=== PATIENT | female | born 1965 | race Caucasian/White ===

== ENCOUNTER → 2018-08-21 | Outpatient (CLI) | payer OTHER ==
--- NOTE | 2018-08-21 12:45 | XR ---
Right wrist and right hand HISTORY: Pain, trauma 4 views of the right wrist, 3 views of the right hand submitted. Bone mineralization, joint spaces and alignment are maintained. IMPRESSION: No fracture or dislocation.
== END | disposition home or self-care (01) ==
LOC: RADXRMAIN 12:05
PROVIDERS: ATTEND Emergency Medicine
DX: M25.531 Pain in right wrist (principal); M79.641 Pain in right hand; M65.841 Other synovitis and tenosynovitis, right hand; R20.9 Unspecified disturbances of skin sensation

== ENCOUNTER 2023-02-09 17:24 | Emergency (ER) | payer BC, OTHER ==
[2023-02-09 17:35] VITALS: RESP 18; TEMP 98.5
[2023-02-09] MEDS ORDERED: SODIUM CHLORIDE 0.9% 1,000 ML IV STA (17:52)
--- NOTE | 2023-02-09 17:59 | ED ---
Neuro HPI - General Chief Complaint: Neuro Symptoms/Deficit Stated Complaint: possible stroke Time Seen by Provider: 02/09/23 17:37 Source: patient, RN notes reviewed, old records reviewed Mode of arrival: wheelchair Limitations: no limitations - History of Present Illness Is the patient presenting with stroke symptoms?: Yes -: hour(s) (15) Initial Comments: This is a 57-year-old female of severe left-sided facial weakness as well as left arm weakness. The symptoms began last night progressing here in the emergency department. She has no travel history no sick contacts but does have persistent symptoms here in the emergency department. Symptoms are severe with occasional headaches and vertigo at home. Patient is no medical history takes no medications Location: left face, left arm, altered Place: home Severity: severe Improves With: none Worsens With: none Context: sudden onset Associated Symptoms: confusion - Related Data Home Medications: Home Medications Medication Instructions Recorded Confirmed Magnesium Oxide [Magox 400] 400 mg PO HS 02/09/23 02/09/23 Potassium Gluconate 99 mg PO HS 02/09/23 02/09/23 Allergies/Adverse Reactions: Allergies Allergy/AdvReac Type Severity Reaction Status Date / Time No Known Allergies Allergy Verified 02/09/23 19:12 Review of Systems ROS Statement: Those systems with pertinent positive or pertinent negative responses have been documented in the HPI. ROS Other: All systems not noted in ROS Statement are negative. General Exam - General Exam Comments Initial Comments: NIH 3 Partial facial paralysis of left-sided numbness and tingling Limitations: no limitations General appearance: alert, in no apparent distress, anxious Head exam: Present: atraumatic, normocephalic, normal inspection Eye exam: Present: normal appearance, PERRL, EOMI. Absent: scleral icterus, conjunctival injection, periorbital swelling ENT exam: Present: normal exam, mucous membranes moist Neck exam: Present: normal inspection. Absent: tenderness, meningismus, lymphadenopathy Respiratory exam: Present: normal lung sounds bilaterally. Absent: respiratory distress, wheezes, rales, rhonchi, stridor Cardiovascular Exam: Present: regular rate, normal rhythm, normal heart sounds. Absent: systolic murmur, diastolic murmur, rubs, gallop, clicks GI/Abdominal exam: Present: soft, normal bowel sounds. Absent: distended, tenderness, guarding, rebound, rigid Extremities exam: Present: normal inspection, full ROM, normal capillary refill. Absent: tenderness, pedal edema, joint swelling, calf tenderness Back exam: Present: normal inspection Neurological exam: Present: alert, oriented X3, CN II-XII intact Psychiatric exam: Present: normal affect, normal mood Skin exam: Present: warm, dry, intact, normal color. Absent: rash Stroke MDM - Lab Data Result diagrams: 02/09/23 17:56 02/09/23 17:56 Lab Results 02/09/23 02/09/23 02/09/23 Range/Units 17:56 17:56 17:56 WBC 9.5 (3.8-10.6) k/uL RBC 4.54 (3.80-5.40) m/uL Hgb 13.8 (11.4-16.0) gm/dL Hct 40.1 (34.0-46.0) % MCV 88.3 (80.0-100.0) fL MCH 30.4 (25.0-35.0) pg MCHC 34.5 (31.0-37.0) g/dL RDW 12.1 (11.5-15.5) % Plt Count 272 (150-450) k/uL MPV 7.6 Neutrophils % 69 % Lymphocytes % 23 % Monocytes % 5 % Eosinophils % 1 % Basophils % 1 % Neutrophils # 6.5 (1.3-7.7) k/uL Lymphocytes # 2.2 (1.0-4.8) k/uL Monocytes # 0.5 (0-1.0) k/uL Eosinophils # 0.1 (0-0.7) k/uL Basophils # 0.1 (0-0.2) k/uL PT 10.4 (10.0-12.5) sec INR 0.9 (<1.2) APTT 25.6 (22.0-30.0) sec Sodium 138 (137-145) mmol/L Potassium 3.8 (3.5-5.1) mmol/L Chloride 99 (98-107) mmol/L Carbon Dioxide 27 (22-30) mmol/L Anion Gap 12 mmol/L BUN 7 (7-17) mg/dL Creatinine 0.43 L (0.52-1.04) mg/dL Est GFR (CKD-EPI)AfAm >90 (>60 ml/min/1.73 sqM) Est GFR (CKD-EPI)NonAf >90 (>60 ml/min/1.73 sqM) Glucose 104 H (74-99) mg/dL Calcium 9.8 (8.4-10.2) mg/dL Total Bilirubin 0.6 (0.2-1.3) mg/dL AST 41 H (14-36) U/L ALT 36 H (4-34) U/L Alkaline Phosphatase 153 H (38-126) U/L Creatine Kinase 44 (30-135) U/L Troponin I (0.000-0.034) ng/mL Total Protein 7.9 (6.3-8.2) g/dL Albumin 4.7 (3.5-5.0) g/dL 02/09/23 Range/Units 17:56 WBC (3.8-10.6) k/uL RBC (3.80-5.40) m/uL Hgb (11.4-16.0) gm/dL Hct (34.0-46.0) % MCV (80.0-100.0) fL MCH (25.0-35.0) pg MCHC (31.0-37.0) g/dL RDW (11.5-15.5) % Plt Count (150-450) k/uL MPV Neutrophils % % Lymphocytes % % Monocytes % % Eosinophils % % Basophils % % Neutrophils # (1.3-7.7) k/uL Lymphocytes # (1.0-4.8) k/uL Monocytes # (0-1.0) k/uL Eosinophils # (0-0.7) k/uL Basophils # (0-0.2) k/uL PT (10.0-12.5) sec INR (<1.2) APTT (22.0-30.0) sec Sodium (137-145) mmol/L Potassium (3.5-5.1) mmol/L Chloride (98-107) mmol/L Carbon Dioxide (22-30) mmol/L Anion Gap mmol/L BUN (7-17) mg/dL Creatinine (0.52-1.04) mg/dL Est GFR (CKD-EPI)AfAm (>60 ml/min/1.73 sqM) Est GFR (CKD-EPI)NonAf (>60 ml/min/1.73 sqM) Glucose (74-99) mg/dL Calcium (8.4-10.2) mg/dL Total Bilirubin (0.2-1.3) mg/dL AST (14-36) U/L ALT (4-34) U/L Alkaline Phosphatase (38-126) U/L Creatine Kinase (30-135) U/L Troponin I <0.012 (0.000-0.034) ng/mL Total Protein (6.3-8.2) g/dL Albumin (3.5-5.0) g/dL - NIH Stroke Scale 1a. Level of Consciousness: (0) alert 1b. LOC Questions: (0) answers correctly 1c. LOC Commands: (0) performs tasks correctly 2. Best Gaze: (0) normal 3. Visual: (0) no visual loss 4. Facial Palsy: (2) partial paralysis 5a. Motor Arm Left: (1) drift 5b. Motor Arm Right: (0) no drift 6a. Motor Leg Left: (0) no drift 6b. Motor Leg Right: (0) no drift 7. Limb Ataxia: (0) absent 8. Sensory: (0) normal 9. Best Language: (0) no aphasia 10. Dysarthria: (0) normal 11. Extinction/Inattention: (0) no abnormality - Medical Decision Making 57 female to the emergency room today for evaluation of new onset neurological symptoms left-sided facial weakness numbness and tingling in left arm numbness and tingling, patient be transferred for neurosurgical evaluation management - Radiology Data Radiology results: report reviewed (T brain and as well as CT angios does show positive brain mass versus primary neoplasm, CXR is negative for acute disaese), image reviewed - EKG Data -: EKG Interpreted by Me (EKG sinus 76 GA 160 QRS 81 QTc 411) Past Medical History Past Medical History: No Reported History 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 History of Any Multi-Drug Resistant Organisms: None Reported Past Surgical History: Tubal Ligation Additional Past Surgical History / Comment(s): PLASTIC SX RT INDEX FINGER Past Anesthesia/Blood Transfusion Reactions: No Reported Reaction Past Psychological History: No Psychological Hx Reported Smoking Status: Current every day smoker, Vaper Past Alcohol Use History: Rare Past Drug Use History: None Reported - Past Family History Mother Family Medical History: No Reported History Course Vital Signs 02/09/23 02/09/23 02/09/23 17:29 18:00 18:30 Temperature 98.5 F Pulse Rate 103 H 98 92 Respiratory 18 18 18 Rate Blood Pressure 156/85 139/87 138/85 O2 Sat by Pulse 97 96 96 Oximetry 02/09/23 02/09/23 02/09/23 18:45 19:00 19:15 Temperature Pulse Rate 86 96 96 Respiratory 14 18 Rate Blood Pressure 147/90 145/84 O2 Sat by Pulse 96 96 Oximetry - Reevaluation(s) Reevaluation #1: 02/09/23 18:23 Record is reviewed Code stroke was paged on patient evaluation Reevaluation #2: 02/09/23 19:00 Patient symptoms are unchanged Reevaluation #3: 02/09/23 19:00 Patient informed results questions answered Reevaluation #4: 02/09/23 18:04 Was pt. sent in by a medical professional or institution (, PA, [facility], urgent care, hospital, or snf...) When possible be specific @ -no Did you speak to anyone other than the patient for history (EMS, parent, family, police, friend...)? What history was obtained from this source @ -no Did you review nursing and triage notes (agree or disagree)? Why? @ -agree Are old charts reviewed (outside hosp., previous admission, EMS record, old EKG, old radiological studies, urgent care reports/EKG's, snf records)? Report findings @ -yes Differential Diagnosis (chest pain, altered mental status, abdominal pain women, abdominal pain men, vaginal bleeding, weakness, fever, dyspnea, syncope, headache, dizziness, GI bleed, back pain, seizure, CVA, palpatations, mental health, musculoskeletal)? @ -prior EKG interpreted by me (3pts min.). @ -yes X-rays interpreted by me (1pt min.). @ -yes negative for acute disease CT interpreted by me (1pt min.). @ -Yes positive for brain mass U/S interpreted by me (1pt. min.). @ -no What testing was considered but not performed or refused? (CT, X-rays, U/S, labs)? Why? @ -none What meds were considered but not given or refused? Why? @ -none Did you discuss the management of the patient with other professionals (professionals i.e. , PA, [employer] [facility], lab, RT, psych nurse, director of social media marketing, metal hanging helper, teacher, court security officer, shoe parts caser)? Give summary @ -no Was smoking cessation discussed for >3mins.? @ -no Was critical care preformed (if so, how long)? @ -no Were there social determinants of health that impacted care today? How? (Homelessness, low income, unemployed, alcoholism, drug addiction, transportation, low edu. Level, literacy, decrease access to med. care, fpc, rehab)? @ -none Was there de-escalation of care discussed even if they declined (Discuss DNR or withdrawal of care, Hospice)? DNR status @ -no What co-morbidities impacted this encounter? (DM, HTN, Smoking, COPD, CAD, Cancer, CVA, ARF, Chemo, Hep., AIDS, mental health diagnosis, sleep apnea, morbid obesity)? @ -none Was patient admitted / discharged? Hospital course, mention meds given and route, prescriptions, significant lab abnormalities, going to OR and other pertinent info. @ - 57 female to the emergency room today for evaluation of new onset neurological symptoms left-sided facial weakness numbness and tingling in left arm numbness and tingling, patient be transferred for neurosurgical evaluation management Transferred to [facility] Admitted Undiagnosed new problem with uncertain prognosis? @ -no Drug Therapy requiring intensive monitoring for toxicity (Heparin, Nitro, Insulin, Cardizem)? @ -no Were any procedures done? @ -no Diagn new brain mass, primary neoplasm osis/symptom? @ - Acute, or Chronic, or Acute on Chronic? @ -Acute Uncomplicated (without systemic symptoms) or Complicated (systemic symptoms)? @ -Complicated Side effects of treatment? @ -no Exacerbation, Progression, or Severe Exacerbation? @ -exacerbation Poses a threat to life or bodily function? How? (Chest pain, USA, CT, pneumonia, PE, COPD, DKA, ARF, appy, cholecystitis, CVA, Diverticulitis, Homicidal, Suicidal, threat to staff... and all critical care pts) @ -yes with significant brain neoplasm Reevaluation #5: 02/09/23 19:00 Differential CVA Ischemic stroke, hemorrhagic stroke, brain tumor, atypical migraine, Wernicke's encephalopathy, seizure, multiple sclerosis, meningitis, encephalitis, hypoglycemia, Guillain-Kay, electrolytes disturbance, myasthenia gravis.... This is not meant to be an all-inclusive list - Consultations Consultation #1: spoke with neuro interventional is regarding findings Consultation #2: Spoke with [facility] Guo will accept transfer Critical Care Time Critical Care Time: Yes Total Critical Care Time: 31 Disposition Clinical Impression: Cerebral mass, Brain tumor, Brain mass Disposition: OTHER INSTITUTION NOT DEFINED Condition: Serious Is patient prescribed a controlled substance at d/c from ED?: No Referrals: None,Stated [Primary Care Provider] - 1-2 days Time of Disposition: 19:00 - Out of Hospital Transfer - Req. Specs Out of Hospital Transfer - Requested Specifics: Other Emergency Center ([facility])
[2023-02-09 18:06] LABS: Basophils # (A) 0.1 k/uL (0-0.2); Basophils % (A) 1 %; Eosinophils # (A) 0.1 k/uL (0-0.7); Eosinophils % (A) 1 %; HCT 40.1 % (34.0-46.0); HGB 13.8 gm/dL (11.4-16.0); Lymphocytes # (A) 2.2 k/uL (1.0-4.8); Lymphocytes % (A) 23 %; MCH 30.4 pg (25.0-35.0); MCHC 34.5 g/dL (31.0-37.0); MCV 88.3 fL (80.0-100.0); Mean Platelet Volume 7.6; Monocytes # (A) 0.5 k/uL (0-1.0); Monocytes % (A) 5 %; Neutrophils # (A) 6.5 k/uL (1.3-7.7); Neutrophils % (A) 69 %; Platelet Count 272 k/uL (150-450); RBC 4.54 m/uL (3.80-5.40); RDW 12.1 % (11.5-15.5); WBC 9.5 k/uL (3.8-10.6)
[2023-02-09 18:22] LABS: ALT 36 U/L (4-34); AST 41 U/L (14-36); African American GFR (CKD) >90 (>60 ml/min/1.73 sqM); Albumin 4.7 g/dL (3.5-5.0); Alkaline Phosphatase 153 U/L (38-126); Anion Gap 12 mmol/L; Blood Urea Nitrogen 7 mg/dL (7-17); Calcium 9.8 mg/dL (8.4-10.2); Carbon Dioxide 27 mmol/L (22-30); Chloride 99 mmol/L (98-107); Creatine Kinase 44 U/L (30-135); Glucose 104 mg/dL (74-99); Non-African American GFR(CKD) >90 (>60 ml/min/1.73 sqM); Potassium 3.8 mmol/L (3.5-5.1); Sodium 138 mmol/L (137-145); Total Bilirubin 0.6 mg/dL (0.2-1.3); Total Protein 7.9 g/dL (6.3-8.2)
[2023-02-09 18:23] LABS: INR 0.9 (<1.2); Partial Thromboplastin Time 25.6 sec (22.0-30.0); Prothrombin Time 10.4 sec (10.0-12.5)
--- NOTE | 2023-02-09 18:30 | CT ---
EXAMINATION TYPE: CT brain wo con for TPA CT DLP: 1103.4 mGycm, Automated exposure control for dose reduction was used. DATE OF EXAM: 02/09/2023 6:05 PM COMPARISON: None. CLINICAL INDICATION:Female, 57 years old with history of Neuro deficit, acute, stroke suspected, cva TECHNIQUE: Brain: Axial CT images of the brain were obtained with coronal and sagittal reformats created and rev iewed. Contrast used: None. Oral contrast used: None. FINDINGS: Centered at the right frontoparietal junction near the de la rosa-white junction, there is a rounded area o f hypoattenuation measuring about 4.4 cm AP by 4.1 cm transverse by 4.6 cm craniocaudal, with some ar eas of peripheral hyperattenuation seen primarily anteriorly and superiorly which could represent blo od products, increased cellularity, calcification. There is significant vasogenic edema surrounding t he lesion with effacement of multiple regional sulci and mass effect with partial compression on the anterior horn of the right lateral ventricle and up to 6.8 mm midline shift towards the left. No hydrocephalus suggested. Basilar cisterns are patent. No evidence of herniation at this time. No e vidence of extra-axial hemorrhage. No loss of de la rosa-white matter distinction is seen which would be ch aracteristic for acute ischemic infarct. Osseous structures appear intact without evidence of lytic/blastic lesion. No significant fluid accum ulation the paranasal sinuses. Mild nasal septal deviation towards the right. Orbits and contents rhianna ear unremarkable as seen. No soft tissue anomalies identified. IMPRESSION: 1. Findings most compatible with 4.6 cm mass in the right cerebral hemisphere centered at the fronto parietal junction. Likely considerations include metastasis versus primary brain neoplasm. Some areas of peripheral hyperattenuation are seen primarily anteriorly and superiorly which could represent bl ood products, increased cellularity, calcification. Contrast MRI may be helpful for further evaluatio n. 2. Edema with mass effect associated with #1, causing partial compression on the anterior horn of th e right lateral ventricle and up to 6.8 mm midline shift towards the left.
--- NOTE | 2023-02-09 18:38 | XR ---
EXAMINATION TYPE: XR chest 2V DATE OF EXAM: 02/09/2023 6:09 PM CLINICAL INDICATION:Female, 57 years old with history of altered mental status; [facility] COMPARISON: Same day CT head TECHNIQUE: XR chest 2V. Frontal PA and lateral views of the chest. FINDINGS: Lines/Tubes: EKG leads overlie the chest. No indwelling lines are seen. Heart/mediastinum: Cardiomediastinal silhouette is well defined. Heart size is normal. Partially ca lcified aorta. There is question of nonspecific mild broadening of the superior mediastinal silhouett e and mass or adenopathy is not excluded. Pulmonary vascularity: Not increased, Lungs/Pleura: Hazy opacity over the lung bases likely from overlying soft tissue attenuation. Azygous lobe noted on the right, anatomic variant. No consolidation, pleural effusion, or pneumothorax demon strated. No large masses seen. Small radiodense nodular foci inferolaterally on the left, and possibl y at the right lung base and left suprahilar region, may be related to calcified granulomatous diseas e. Musculoskeletal: No acute osseous abnormality demonstrated in the limits of the exam. Other findings: None. IMPRESSION: 1. No acute cardiopulmonary abnormality. 2. A few small radiodense lung nodules, could be related to prior granulomatous disease. 3. Question nonspecific mild broadening of the superior mediastinal silhouette. 4. Correlation with outpatient contrast CT chest may be of benefit for further evaluation.
[2023-02-09] MEDS ORDERED: DEXAMETHASONE SOD PHOSPHATE 10 MG/ML 1 ML VIAL IVP STA (18:58)
--- NOTE | 2023-02-09 18:58 | CT ---
EXAMINATION TYPE: CT angio head neck DATE OF EXAM: 02/09/2023 6:22 PM COMPARISON: Same day CT head without contrast. CLINICAL INDICATION:Female, 57 years old with history of Neuro deficit, acute, stroke suspected; [facility], cva TECHNIQUE: Axially acquired helical CT angiogram of the head and neck was obtained with contrast. Axi al images are supplemented with 3D reconstructions which [facility] NASCET criteria used. Contrast used: 65cc mL of Isovue 370 with IV Contrast, Oral contrast used: None. CT DLP: 369.2 mGycm, Automated exposure control for dose reduction was used. FINDINGS: CTA Neck: A 3 vessel aortic arch is shown. Mild plaque at the origins of the branch vessels without significant stenosis seen. Calcified plaques are seen along the more distal aortic arch. There is no atherosclerotic plaque at the origins of the vertebral arteries. There is mixed soft and calcified p laque at the right more than left carotid bifurcations, with less than 50% stenosis on the right and no significant stenosis on the left. The common carotid, external carotid, cervical segments of the i nternal carotid, and the cervical segments of the vertebral arteries are otherwise patent. There is n o evidence of dissection, nor pseudoaneurysm present. The right vertebral artery is dominant. Other: Included lung apices show mild emphysematous changes. Subpleural spiculated noncalcified nodul e in the lateral right lung apex measures 1.4 x 1 cm. Upper mediastinum shows multiple mediastinal so ft tissue densities, many confluent, likely representing metastatic lymph nodes, the largest 3.8 x 3. 1 cm in the right anterior paratracheal region. A few foci of associated increased attenuation are se en which could represent enhancement, blood products, and/or calcification. Abnormal soft tissue dens ities are also seen extending to the base of the neck, with multiple masses seen presumably represent ing metastatic lymph nodes, more on the left than the right. The largest is 3 x 2.6 cm on the left la teral to the common carotid artery. More superiorly in the neck, there are multiple additional nodes seen which are not enlarged by size criteria. The thyroid appears slightly heterogeneous with a few r elatively hypodense nodules, the largest about 0.75 cm along the right side of the isthmus. Osseous structures show mild degenerative changes. No lytic/blastic bony lesions. CTA Head: The anterior and posterior cerebral circulations are patent. No hemodynamically significan t stenosis, aneurysm, dissection, or arteriovenous malformation is shown. Mild atherosclerotic calcif ication of the left carotid siphon without significant stenosis seen. No sizable posterior communicat ing arteries are seen. Other: CT appearance of brain is similar to the prior examination. Again a mass is seen at the right frontoparietal junction as previously described. Mild peripheral enhancement suggested. No other enh ancing lesions are seen in the limits of CTA. Imaged portions of the paranasal sinuses and mastoid air cells are clear. The orbits appear normal. There are no acute fractures of the calvaria or scalp swelling. The dural venous sinuses appear patent without evidence of thrombosis. IMPRESSION: CTA neck: 1. Soft and calcified plaque at the bilateral carotid bifurcations, right more than left, with less than 50% stenosis of the proximal right ICA and no significant stenosis of the proximal left ICA. 2. Right vertebral is dominant. No abnormality of the vertebral arteries in the neck identified. 3. Multiple soft tissue densities in the included upper mediastinum and left more than right base of neck, very likely krishna metastases. 4. A 1.4 cm spiculated nodule in the right lung apex, likely metastatic. CTA head: 1. No intracranial major vascular occlusion or significant stenosis, or sizable aneurysm detected in the limits of CTA. 2. Brain mass redemonstrated at the right frontoparietal junction. Please see CT report for details.
[2023-02-09 19:25] VITALS: BP 145/84; PULSE 96
[2023-02-09] MEDS ORDERED: ONDANSETRON 4 MG/2 ML VIAL IVP STA (19:26)
== END 2023-02-09 19:38 | disposition other institution (70) ==
LOC: EC 17:24
DX: G93.9 Disorder of brain, unspecified (principal); I65.23 Occlusion and stenosis of bilateral carotid arteries; F17.290 Nicotine dependence, other tobacco product, uncomplicated
CPT/HCPCS: 99291; 96374; 96375; 36415; 93005; 80053; 82550; 84484; 85025; 85610; 85730; 71046; 70496; 70450; 70498; J1100; J2405; Q9967